=== PATIENT | female | born 1975 | race Caucasian/White ===

== ENCOUNTER 2019-01-28 00:27 | Emergency (ER) | payer MEDICAID ==
[~2019-01-28] VITALS: Ht 154.9 cm; Wt 68.5 kg
[2019-01-28 01:05] VITALS: BP_SYST 102
--- NOTE | 2019-01-28 01:14 | NUR ---
Patient triaged and placed in waiting room. VSS and patient appears in no acute distress at this time. Accompanied by self, awaiting available bed, and MD notified of need for MSE.
--- NOTE | 2019-01-28 02:10 | NUR ---
Patient to ER bed 08 to gown for evaluation. Side rails up. Report given to HAILEY Uribe
--- NOTE | 2019-01-28 02:17 | NUR ---
Patient brought in complaing of bilateral knee pain x 2 weeks after being on a treadmill. Patient denies any trauma. Mild swelling noted to lower extremities. Pain 6/10. No other complaints/injuries per patient or as noted. Will continue to monitor.
--- NOTE | 2019-01-28 02:27 | NUR ---
ER at bedside examining patient.
[2019-01-28] MEDS ORDERED: PREDNISONE 20 MG TABLET PO ONE (02:30)
[2019-01-28] MEDS ORDERED: KETOROLAC TROMETHAMINE 60 MG/2 ML VIAL IM ONE (02:30)
[2019-01-28 02:54] VITALS: BP_SYST 105
== END 2019-01-28 02:54 | disposition home or self-care (01) ==
LOC: SED 00:27
DX: S86.891A Other injury of other muscle(s) and tendon(s) at lower leg level, right leg, initial encounter (principal); S86.892A Other injury of other muscle(s) and tendon(s) at lower leg level, left leg, initial encounter; Z88.1 Allergy status to other antibiotic agents; X58.XXXA Exposure to other specified factors, initial encounter; Y93.89 Activity, other specified; Y92.89 Other specified places as the place of occurrence of the external cause; Y99.8 Other external cause status
CPT/HCPCS: 96372; 99283; J1885; J7512

== ENCOUNTER 2019-06-17 09:31 | Emergency (ER) | payer MEDICAID ==
[~2019-06-17] VITALS: Ht 154.9 cm; Wt 64.4 kg
--- NOTE | 2019-06-17 09:45 | NUR ---
Patient to ER bed 3 to gown for evaluation. Side rails up. Report given to Calli HART.
[2019-06-17 09:49] VITALS: BP_SYST 103
--- NOTE | 2019-06-17 09:55 | NUR ---
Patient presented to ER with C/O abdominal pain since yesterday. Patient A&Ox4, afebrile, skin pink & warm, ambulatory to ER, pain 06/03, denies N/V/D. PAtient states she has right lower quadrant pain since yesterday with fever yesterday.
--- NOTE | 2019-06-17 10:05 | NUR ---
ER at bedside examining patient.
[2019-06-17] MEDS ORDERED: KETOROLAC TROMETHAMINE 60 MG/2 ML VIAL IM ONE (10:15)
[2019-06-17 10:43] LABS: BILIRUBIN,URINE NEGATIVE (NEGATIVE); BLOOD, URINE 1+ (NEGATIVE); CLARITY/URINE SL CLOUDY (CLEAR); COLOR,URINE YELLOW (YELLOW); GLUCOSE,URINE NEGATIVE (NEGATIVE); KETONES,URINE NEGATIVE (NEGATIVE); LEUKOCYTE ESTERASE ,URINE 2+ (NEGATIVE); NITRITE, URINE POSITIVE (NEGATIVE); PH,URINE 5.5 (5.0-8.0); PROTEIN URINE 1+ (NEGATIVE)
[2019-06-17 10:45] LABS: BASOPHILS % (AUTO) 0.3 % (0.0-2.0); EOSINOPHILS % (AUTO) 0.1 % (0.0-4.0); HEMATOCRIT 37.8 % (36-48); HEMOGLOBIN 12.9 g/dL (12.0-16.0); LYMPHOCYTES # (AUTO) 1.5 K/uL (1.0-5.5); LYMPHOCYTES % (AUTO) 15.5 % (20.5-51.5); MEAN CORPUSCULAR HEMOGLOBIN 30 pg (27-31); MEAN CORPUSCULAR HGB CONC 34 % (32-36); MEAN CORPUSCULAR VOLUME 88 fL (79.0-98.0); MONOCYTES % (AUTO) 9.9 % (1.7-9.3); NEUTROPHILS # (AUTO) 7.4 K/uL (1.8-7.7); NEUTROPHILS % (AUTO) 74.2 % (40.0-70.0); PLATELET COUNT (AUTO) 246 K/uL (130-430); RED BLOOD CELL COUNT(AUTO) 4.29 MIL/uL (4.2-6.2)
[2019-06-17 10:48] LABS: BACTERIA,URINE MODERATE /HPF (None Seen); WBC,URINE 80-100 /HPF (0-3)
--- NOTE | 2019-06-17 10:56 | NUR ---
Patient to radiology via wheelchair with staff.
[2019-06-17 10:57] LABS: ALBUMIN 3.1 g/dL (3.4-4.8); CALCIUM 8.3 mg/dL (8.4-11.0); CREATININE 0.74 mg/dL (0.55-1.30)
[2019-06-17 11:00] LABS: POTASSIUM 2.8 mmol/L (3.5-5.1)
--- NOTE | 2019-06-17 11:10 | NUR ---
Patient to ER bed 3 from radiology.
[2019-06-17] MEDS ORDERED: POTASSIUM CHLORIDE 20 MEQ TAB.PRT.SR PO ONE (11:15)
--- NOTE | 2019-06-17 11:52 | NUR ---
Note undone in EDM - 06/17/19 at 1622 by [email or web address] Patient given written and verbal discharge instructions and verbalizes understanding. ER discussed with patient the results and treatment provided. Patient in stable condition. ID arm band removed. Rx of Macrobid given. Patient educated on pain management and to follow up with PMD. Pain Scale 2/10. Opportunity for questions provided and answered. Medication side effect fact sheet provided.
[2019-06-17] MEDS ORDERED: cefTRIAXone 1 GM VIAL IM ONE (12:45)
--- NOTE | 2019-06-17 12:52 | NUR ---
Patient given written and verbal discharge instructions and verbalizes understanding. ER MD discussed with patient the results and treatment provided. Patient in stable condition. ID arm band removed. Rx of Macrobid given. Patient educated on pain management and to follow up with PMD. Pain Scale 2/10. Opportunity for questions provided and answered. Medication side effect fact sheet provided.
[2019-06-17] MEDS ORDERED: LIDOCAINE 1%, 20 ML MDV 20 ML ONE (13:08)
[2019-06-17 13:09] VITALS: BP_SYST 101
--- NOTE | 2019-06-17 13:52 | NUR ---
Note undone in EDM - 06/17/19 at 1623 by [email or web address] Patient given written and verbal discharge instructions and verbalizes understanding. ER discussed with patient the results and treatment provided. Patient in stable condition. ID arm band removed. Rx of Macrobid given. Patient educated on pain management and to follow up with PMD. Pain Scale 2/10. Opportunity for questions provided and answered. Medication side effect fact sheet provided.
== END 2019-06-17 12:52 | disposition home or self-care (01) ==
LOC: SED 09:31
DX: N39.0 Urinary tract infection, site not specified (principal); Z88.1 Allergy status to other antibiotic agents
CPT/HCPCS: 36415; 74176; 80053; 81000; 81025; 83690; 85025; 87086; 87186; 96372; 99284; J0696; J1885; J2001

== ENCOUNTER 2020-02-16 14:08 | Emergency (ER) | payer MEDICAID ==
[~2020-02-16] VITALS: Ht 154.9 cm; Wt 65.8 kg
[2020-02-16 14:10] VITALS: BP_SYST 106
--- NOTE | 2020-02-16 16:00 | NUR ---
Patient to ER bed 03 to gown for evaluation. Side rails up.
--- NOTE | 2020-02-16 16:02 | NUR ---
Pt brought by self, A&Ox4, pt presents to ER with diffuse abdominal pain and nausea, skin pink and warm, cap refill <3, VSS.
--- NOTE | 2020-02-16 16:04 | NUR ---
Brielle Gonzalez at bedside examining patient
[2020-02-16 16:45] LABS: BILIRUBIN,URINE NEGATIVE (NEGATIVE); BLOOD, URINE NEGATIVE (NEGATIVE); COLOR,URINE YELLOW (YELLOW); GLUCOSE,URINE NEGATIVE (NEGATIVE); KETONES,URINE NEGATIVE (NEGATIVE); LEUKOCYTE ESTERASE ,URINE NEGATIVE (NEGATIVE); NITRITE, URINE NEGATIVE (NEGATIVE); PROTEIN URINE NEGATIVE (NEGATIVE); UROBILINOGEN,URINE 0.2 (0.2-1.0)
--- NOTE | 2020-02-16 17:12 | NUR ---
DR. LE AT BEDSIDE WITH RN PERFORMING BEDSIDE PELVIC EXAM.
[2020-02-16 17:20] LABS: CLARITY/URINE SLIGHTLY HAZY (CLEAR)
--- NOTE | 2020-02-16 17:30 | NUR ---
received report from HAILEY guerrero
--- NOTE | 2020-02-16 17:31 | NUR ---
Patient transported to radiology via [facility], accompanied by RENE.
--- NOTE | 2020-02-16 17:40 | NUR ---
PATIENT RETURNED FROM RADIOLOGY. NO SIGNS OF ACUTE DISTRESS.
[2020-02-16 18:47] VITALS: BP_SYST 122
--- NOTE | 2020-02-16 18:47 | NUR ---
Patient given written and verbal discharge instructions and verbalizes understanding. ER MD discussed with patient the results and treatment provided. Patient in stable condition. ID arm band removed. Rx of MIRALAX given. Patient educated on pain management and to follow up with PMD. Pain Scale 0/10. Opportunity for questions provided and answered. Medication side effect fact sheet provided.
--- NOTE | 2020-02-16 18:47 | NUR ---
Note undone in EDM - 02/16/20 at 1854 by HEMANTH Patient given written and verbal discharge instructions and verbalizes understanding. ER discussed with patient the results and treatment provided. Patient in stable condition. ID arm band removed. Rx of MIRALAX given. Patient educated on pain management and to follow up with PMD. Pain Scale . Opportunity for questions provided and answered. Medication side effect fact sheet provided.
[2020-02-19 00:07] LABS: CHLAMYDIA TRACHOMATIS NAA Negative (Negative); NEISSERIA GONORRHOEAE NAA Negative (Negative)
== END 2020-02-16 18:47 | disposition home or self-care (01) ==
LOC: SED 14:08
DX: N89.8 Other specified noninflammatory disorders of vagina (principal); K59.00 Constipation, unspecified; Z90.49 Acquired absence of other specified parts of digestive tract; Z88.1 Allergy status to other antibiotic agents
CPT/HCPCS: 74018; 81003; 81025; 87210-TC; 87491; 87591; 99285

== ENCOUNTER 2021-01-24 16:34 | Emergency (ER) | payer MEDICAID ==
[~2021-01-24] VITALS: Ht 154.9 cm; Wt 65.8 kg
[2021-01-24 16:35] VITALS: BP_SYST 119
[2021-01-24] MEDS ORDERED: DICYCLOMINE HCL 20 MG/2 ML AMP IM ONE (17:30)
[2021-01-24 17:53] LABS: BASOPHILS % (AUTO) 0.2 % (0.0-2.0); EOSINOPHILS % (AUTO) 0.6 % (0.0-4.0); HEMATOCRIT 41.3 % (36-48); HEMOGLOBIN 14.3 g/dL (12.0-16.0); LYMPHOCYTES # (AUTO) 1.3 K/uL (1.0-5.5); LYMPHOCYTES % (AUTO) 16.4 % (20.5-51.5); MEAN CORPUSCULAR HEMOGLOBIN 30 pg (27-31); MEAN CORPUSCULAR HGB CONC 35 % (32-36); MEAN CORPUSCULAR VOLUME 87 fL (79.0-98.0); MONOCYTES # (AUTO) 0.6 K/uL (0.0-1.0); MONOCYTES % (AUTO) 7.7 % (1.7-9.3); NEUTROPHILS # (AUTO) 6.1 K/uL (1.8-7.7); NEUTROPHILS % (AUTO) 75.1 % (40.0-70.0); PLATELET COUNT (AUTO) 264 K/uL (130-430); RED BLOOD CELL COUNT(AUTO) 4.76 MIL/uL (4.2-6.2); RED CELL DISTRIBUTION WIDTH 13.2 % (9.0-15.0); WHITE BLOOD COUNT (AUTO) 8.2 K/uL (4.8-10.8)
[2021-01-24 18:02] LABS: CALCIUM 9.3 mg/dL (8.4-11.0); CREATININE 0.64 mg/dL (0.55-1.30); POTASSIUM 3.8 mmol/L (3.5-5.1)
[2021-01-24 18:08] LABS: ALBUMIN 3.5 g/dL (3.4-4.8); TOTAL BILIRUBIN 0.9 mg/dL (0.0-1.0)
[2021-01-24 18:22] LABS: BILIRUBIN,URINE NEGATIVE (NEGATIVE); BLOOD, URINE NEGATIVE (NEGATIVE); COLOR,URINE YELLOW (YELLOW); GLUCOSE,URINE NEGATIVE (NEGATIVE); KETONES,URINE NEGATIVE (NEGATIVE); LEUKOCYTE ESTERASE ,URINE NEGATIVE (NEGATIVE); NITRITE, URINE NEGATIVE (NEGATIVE); PH,URINE 5.5 (5.0-8.0); PROTEIN URINE NEGATIVE (NEGATIVE); UROBILINOGEN,URINE 0.2 (0.2-1.0)
[2021-01-24 18:24] LABS: CLARITY/URINE SLIGHTLY HAZY (CLEAR)
[2021-01-24] MEDS ORDERED: DICY10CA13 PO (18:49)
[2021-01-24] MEDS ORDERED: METR500T PO (18:49)
[2021-01-24 19:09] VITALS: BP_SYST 119
== END 2021-01-24 19:10 | disposition home or self-care (01) ==
LOC: SED 16:34
DX: R19.7 Diarrhea, unspecified (principal); R10.30 Lower abdominal pain, unspecified; Z88.1 Allergy status to other antibiotic agents; Z79.899 Other long term (current) drug therapy
CPT/HCPCS: 36415; 80053; 81003; 83690; 84703; 85025; 96372; 99283; J0500

== ENCOUNTER 2021-10-29 16:37 | Emergency (ER) | payer OTHER, MEDICAID ==
[~2021-10-29] VITALS: Ht 154.9 cm; Wt 70.3 kg
[~2021-10-29 16:37] MED LIST: DICY10CA13 PO; METR500T PO
[2021-10-29 16:58] VITALS: BP_SYST 114
[2021-10-29] MEDS ORDERED: IBUP-1969 PO (18:11)
[2021-10-29] MEDS ORDERED: SOM350 PO (18:11)
[2021-10-29 18:31] VITALS: BP_SYST 115
== END 2021-10-29 18:31 | disposition home or self-care (01) ==
LOC: SED 16:37
DX: S13.9XXA Sprain of joints and ligaments of unspecified parts of neck, initial encounter (principal); Z79.899 Other long term (current) drug therapy; Z88.0 Allergy status to penicillin; Z88.8 Allergy status to other drugs, medicaments and biological substances; V49.69XA Unspecified car occupant injured in collision with other motor vehicles in traffic accident, initial encounter; Y93.89 Activity, other specified; Y92.488 Other paved roadways as the place of occurrence of the external cause; Y99.8 Other external cause status
CPT/HCPCS: 71045; 72040-TC; 99284

== ENCOUNTER 2022-06-06 09:33 | Emergency (ER) | payer MEDICAID ==
[~2022-06-06] VITALS: Ht 157.5 cm; Wt 72.6 kg
[2022-06-06 09:33] VITALS: BP_SYST 124
[~2022-06-06 09:33] MED LIST changes: +IBUP-1969 PO; +SOM350 PO
[2022-06-06] MEDS ORDERED: DEXAMETHASONE SOD PHOSPHATE 10 MG/ML VIAL IM ONE (10:00)
[2022-06-06] MEDS ORDERED: ACETAMINOPHEN 500 MG TABLET PO ONE (10:00)
[2022-06-06] MEDS ORDERED: KETOROLAC TROMETHAMINE 30 MG VIAL IM ONE (10:00)
[2022-06-06] MEDS ORDERED: ONDANSETRON 4 MG ODT TAB PO ONE (10:00)
[2022-06-06] MEDS ORDERED: IBUP-1969 PO (11:27)
[2022-06-06 11:44] VITALS: BP_SYST 119
== END 2022-06-06 11:45 | disposition home or self-care (01) ==
LOC: SED 09:33
DX: R51.9 Headache, unspecified (principal); R11.0 Nausea; Z88.1 Allergy status to other antibiotic agents; Z79.899 Other long term (current) drug therapy
CPT/HCPCS: 99284; 82962; 96372; Q0162; J1100; J1885

== ENCOUNTER 2024-06-17 01:57 | Emergency (ER) | payer MEDICAID ==
[~2024-06-17] VITALS: Ht 154.9 cm; Wt 74.8 kg
[~2024-06-17 01:57] MED LIST changes: +DICY-14 PO; -DICY10CA13 PO
[2024-06-17 02:19] VITALS: BP_SYST 109; PULSE 81; RESP 18; TEMP 97.2; O2SAT 96
[2024-06-17] MEDS ORDERED: CLIN-142 PO (03:23)
[2024-06-17] MEDS ORDERED: TRAM50TA2 PO (03:23)
[2024-06-17] MEDS ORDERED: BACITRACIN 1 GM OINT TP ONE (03:35)
[2024-06-17 03:39] VITALS: BP_SYST 109; PULSE 81; RESP 18; TEMP 97.2; O2SAT 96
[2024-06-17] MEDS: LIDOCAINE 1% 10 MG/ML, 20 ML MDV INJ ONE (03:44)
[2024-06-17] MEDS: BACITRACIN 1 GM OINT TP ONE (03:45)
== END 2024-06-17 03:38 | disposition home or self-care (01) ==
LOC: SED 01:57
DX: L60.0 Ingrowing nail (principal); Z88.0 Allergy status to penicillin; Z88.1 Allergy status to other antibiotic agents; Z79.899 Other long term (current) drug therapy
CPT/HCPCS: 99284; 11730; J2003